=== PATIENT | male | born 1985 | race Caucasian/White ===

== ENCOUNTER 2017-02-28 02:37 | Inpatient (IN) | payer MEDICARE, MEDICAID ==
[~2017-02-28] VITALS: Ht 188 cm; Wt 81.8 kg
[~2017-02-28 02:37] MED LIST: DIVA500T35 PO; RISP2 PO
[2017-02-28 03:01] LABS: BASOPHILS % (AUTO) 0.4 % (0.0-2.0); EOSINOPHILS % (AUTO) 2.7 % (1.0-6.0); HEMATOCRIT 46.1 % (41-53); HEMOGLOBIN 15.8 g/dL (13.5-17.5); LYMPHOCYTES # (AUTO) 2.5 K/uL (1.0-4.8); MEAN CORPUSCULAR HEMOGLOBIN 31.9 pg (26.0-34.0); MEAN CORPUSCULAR HGB CONC 34.3 G/dL (31.0-37.0); MEAN CORPUSCULAR VOLUME 93 fL (80-100); MONOCYTES # (AUTO) 0.6 K/uL (0.1-1.0); MONOCYTES % (AUTO) 5.1 % (2.0-9.0); NEUTROPHILS # (AUTO) 7.9 K/uL (1.8-7.7); NEUTROPHILS % (AUTO) 69.8 % (40.0-70.0); PLATELET COUNT (AUTO) 226 K/uL (150-450); RED BLOOD CELL COUNT(AUTO) 4.96 MIL/uL (4.50-5.90); RED CELL DISTRIBUTION WIDTH 13.3 % (11.5-14.5)
[2017-02-28 03:05] LABS: ANION GAP 9 mmol/L (8-16); CALCIUM, TOTAL 8.9 mg/dL (8.8-10.5); CARBON DIOXIDE 27 mmol/L (22-29); CHLORIDE 103 mmol/L (98-107); CREATININE 1.04 mg/dL (0.60-1.30); GLOMERULAR FILTR. RATE CALC > 60 mL/min (>60); GLUCOSE,RANDOM 133 mg/dL (70-110); POTASSIUM 3.7 mmol/L (3.5-5.1); SODIUM SERUM 139 mmol/L (136-145); UREA NITROGEN, BLOOD 15 mg/dL (7-18)
[2017-02-28 03:14] LABS: ALANINE AMINOTRANSFERASE 32 U/L (12-78); ALBUMIN 4.1 g/dL (3.4-5.0); ALKALINE PHOSPHATASE 63 U/L (46-116); ASPARTATE AMINOTRANSFERASE 28 U/L (15-37); BILIRUBIN,TOTAL 1.7 mg/dL (0.1-1.0); TOTAL PROTEIN, SERUM 7.1 g/dL (6.4-8.2)
[2017-02-28 03:15] LABS: AMPHET/METH SCREEN,URINE NEGATIVE (NEGATIVE); BARBITURATE SCREEN, URINE NEGATIVE (NEGATIVE); BENZODIAZEPINES SCREEN,URINE NEGATIVE (NEGATIVE); CANNABINOID SCREEN,URINE POSITIVE (NEGATIVE); COCAINE SCREEN,URINE NEGATIVE (NEGATIVE); METHADONE SCREEN, URINE NEGATIVE (NEGATIVE); OPIATE SCREEN,URINE NEGATIVE (NEGATIVE)
[2017-02-28 03:16] LABS: PHENCYCLIDINE SCREEN,URINE NEGATIVE (NEGATIVE)
[2017-02-28 03:16] LABS: VALPROIC ACID < 3 mcg/mL (50-100)
[2017-02-28] MEDS ORDERED: DiphenhydrAMINE HCL 50 MG/ML VIAL IM ONE (03:30)
[2017-02-28] MEDS ORDERED: HALOPERIDOL 5 MG TABLET PO PRN (03:30)
[2017-02-28] MEDS ORDERED: LORazepam 2 MG TABLET PO PRN (03:30)
[2017-02-28] MEDS ORDERED: ZOLPIDEM TARTRATE 10 MG TABLET PO PRN (03:30)
[2017-02-28] MEDS ORDERED: HALOPERIDOL LACTATE 5 MG/ML VIAL IM ONE (03:30)
[2017-02-28] MEDS ORDERED: LORazepam 2 MG/ML VIAL IM ONE (03:30)
[2017-02-28 09:54] VITALS: BP 123/64
[2017-02-28 21:50] VITALS: BP 117/66
[2017-03-01] MEDS ORDERED: INFLUENZA VIRUS VACCINE QVS 2017-18 (3YR+)/PF 60 MCG/0.5 ML SYRINGE IM ONE (02:00)
[2017-03-01 08:00] VITALS: BP 118/66
[2017-03-01] MEDS: DIVALPROEX SODIUM 500 MG ER TABLET PO SCH ×2 (08:42→16:28)
[2017-03-01] MEDS: RisperiDONE 2 MG TABLET PO SCH ×2 (08:42→16:27)
[2017-03-01 16:53] VITALS: BP 116/58
[2017-03-02 04:36] VITALS: BP 121/68
[2017-03-02 08:00] VITALS: BP 155/81
[2017-03-02] MEDS: RisperiDONE 2 MG TABLET PO SCH ×2 (09:38→17:42)
[2017-03-02] MEDS: DIVALPROEX SODIUM 500 MG ER TABLET PO SCH ×2 (09:38→17:42)
[2017-03-03 06:10] LABS: BASOPHILS % (AUTO) 0.5 % (0.0-2.0); EOSINOPHILS % (AUTO) 3.4 % (1.0-6.0); HEMATOCRIT 45.6 % (41-53); HEMOGLOBIN 15.7 g/dL (13.5-17.5); LYMPHOCYTES % (AUTO) 27.1 % (22.0-44.0); MEAN CORPUSCULAR HEMOGLOBIN 32.3 pg (26.0-34.0); MEAN CORPUSCULAR HGB CONC 34.4 G/dL (31.0-37.0); MEAN CORPUSCULAR VOLUME 94 fL (80-100); MONOCYTES # (AUTO) 0.6 K/uL (0.1-1.0); MONOCYTES % (AUTO) 8.3 % (2.0-9.0); NEUTROPHILS # (AUTO) 4.4 K/uL (1.8-7.7); NEUTROPHILS % (AUTO) 60.7 % (40.0-70.0); PLATELET COUNT (AUTO) 195 K/uL (150-450); RED BLOOD CELL COUNT(AUTO) 4.85 MIL/uL (4.50-5.90); RED CELL DISTRIBUTION WIDTH 13.1 % (11.5-14.5)
[2017-03-03 06:29] LABS: ALANINE AMINOTRANSFERASE 32 U/L (12-78); ALBUMIN 3.9 g/dL (3.4-5.0); ALKALINE PHOSPHATASE 77 U/L (46-116); ANION GAP 6 mmol/L (8-16); ASPARTATE AMINOTRANSFERASE 21 U/L (15-37); BILIRUBIN,TOTAL 0.8 mg/dL (0.1-1.0); CALCIUM, TOTAL 8.8 mg/dL (8.8-10.5); CARBON DIOXIDE 32 mmol/L (22-29); CHLORIDE 103 mmol/L (98-107); CREATININE 0.88 mg/dL (0.60-1.30); GLOMERULAR FILTR. RATE CALC > 60 mL/min (>60); GLUCOSE,RANDOM 89 mg/dL (70-110); POTASSIUM 3.7 mmol/L (3.5-5.1); SODIUM SERUM 141 mmol/L (136-145); UREA NITROGEN, BLOOD 14 mg/dL (7-18); VALPROIC ACID 64 mcg/mL (50-100)
[2017-03-03 08:46] VITALS: BP 137/71
[2017-03-03] MEDS: RisperiDONE 2 MG TABLET PO SCH (10:31)
[2017-03-03] MEDS: DIVALPROEX SODIUM 500 MG ER TABLET PO SCH (10:32)
== END 2017-03-03 13:20 | disposition home or self-care (01) | DRG 885 ==
LOC: EMS 02:39 → EEVIPCON 02:39 → 3EC 09:18
PROVIDERS: ADMIT Psychiatry & Neurology Psychiatry; ATTEND Psychiatry & Neurology Psychiatry
DX: F25.0 Schizoaffective disorder, bipolar type (principal); R45.850 Homicidal ideations; F17.210 Nicotine dependence, cigarettes, uncomplicated; F41.9 Anxiety disorder, unspecified; F12.90 Cannabis use, unspecified, uncomplicated; D72.829 Elevated white blood cell count, unspecified; K59.00 Constipation, unspecified; G47.00 Insomnia, unspecified; Z28.21 Immunization not carried out because of patient refusal; Z59.0 Homelessness; Z71.51 Drug abuse counseling and surveillance of drug abuser
CPT/HCPCS: 96372; 99285; G0480; J1200; J1630; J2060

== ENCOUNTER 2017-03-06 23:00 | Inpatient (IN) | payer MEDICARE, MEDICAID ==
[~2017-03-06] VITALS: Ht 188 cm; Wt 74.4 kg
[2017-03-06 23:35] LABS: BASOPHILS % (AUTO) 1.2 % (0.0-2.0); EOSINOPHILS % (AUTO) 3.41 % (1.0-6.0); HEMATOCRIT 46.4 % (41-53); HEMOGLOBIN 15.6 g/dL (13.5-17.5); LYMPHOCYTES # (AUTO) 2.4 K/uL (1.0-4.8); LYMPHOCYTES % (AUTO) 27.5 % (22.0-44.0); MEAN CORPUSCULAR HEMOGLOBIN 31.6 pg (26.0-34.0); MEAN CORPUSCULAR HGB CONC 33.7 G/dL (31.0-37.0); MEAN CORPUSCULAR VOLUME 94 fL (80-100); MONOCYTES # (AUTO) 0.8 K/uL (0.1-1.0); MONOCYTES % (AUTO) 9.6 % (2.0-9.0); NEUTROPHILS # (AUTO) 5.1 K/uL (1.8-7.7); NEUTROPHILS % (AUTO) 58.4 % (40.0-70.0); PLATELET COUNT (AUTO) 245 K/uL (150-450); RED BLOOD CELL COUNT(AUTO) 4.95 MIL/uL (4.50-5.90); RED CELL DISTRIBUTION WIDTH 13.4 % (11.5-14.5); WHITE BLOOD COUNT (AUTO) 8.8 K/uL (4.5-11.0)
[2017-03-06 23:44] LABS: ANION GAP 6 mmol/L (8-16); CALCIUM, TOTAL 9.1 mg/dL (8.8-10.5); CARBON DIOXIDE 29 mmol/L (22-29); CHLORIDE 103 mmol/L (98-107); CREATININE 1.05 mg/dL (0.60-1.30); GLOMERULAR FILTR. RATE CALC > 60 mL/min (>60); POTASSIUM 3.7 mmol/L (3.5-5.1); SODIUM SERUM 138 mmol/L (136-145); UREA NITROGEN, BLOOD 18 mg/dL (7-18)
[2017-03-06 23:50] LABS: ALANINE AMINOTRANSFERASE 34 U/L (12-78); ALBUMIN 4.1 g/dL (3.4-5.0); ASPARTATE AMINOTRANSFERASE 24 U/L (15-37); BILIRUBIN,TOTAL 1.2 mg/dL (0.1-1.0); TOTAL PROTEIN, SERUM 7.3 g/dL (6.4-8.2)
[2017-03-06 23:54] LABS: VALPROIC ACID < 3 mcg/mL (50-100)
[2017-03-07] MEDS ORDERED: ZOLPIDEM TARTRATE 10 MG TABLET PO PRN (01:45)
[2017-03-07] MEDS ORDERED: HALOPERIDOL 5 MG TABLET PO PRN (01:45)
[2017-03-07] MEDS ORDERED: INFLUENZA VIRUS VACCINE QVS 2017-18 (3YR+)/PF 60 MCG/0.5 ML SYRINGE IM ONE (05:15)
[2017-03-07 05:25] VITALS: BP 117/77
[2017-03-07 08:15] VITALS: BP 124/86
[2017-03-07] MEDS: NICOTINE 21 MG/24 HOUR PATCH TD SCH (10:48)
[2017-03-07 16:30] VITALS: BP 133/81
[2017-03-07] MEDS ORDERED: DiphenhydrAMINE HCL 50 MG/ML VIAL IM ONE (16:30)
[2017-03-07] MEDS ORDERED: LORazepam 2 MG/ML VIAL IM ONE (16:30)
[2017-03-07] MEDS ORDERED: HALOPERIDOL LACTATE 5 MG/ML VIAL IM ONE (16:30)
[2017-03-07] MEDS: DIVALPROEX SODIUM 500 MG ER TABLET PO SCH (16:40)
[2017-03-07] MEDS: RisperiDONE 2 MG TABLET PO SCH (16:40)
[2017-03-07 17:32] VITALS: BP 117/71
[2017-03-07] MEDS ORDERED: DOCUSATE SODIUM 100 MG CAPSULE PO PRN (20:30)
[2017-03-07] MEDS ORDERED: ACETAMINOPHEN 325 MG TABLET PO PRN (20:30)
[2017-03-07] MEDS ORDERED: IBUPROFEN 400 MG TABLET PO PRN (20:30)
[2017-03-08 07:31] VITALS: BP 111/79
[2017-03-08 08:26] VITALS: BP 115/64
[2017-03-08] MEDS: NICOTINE 21 MG/24 HOUR PATCH TD SCH (08:44)
[2017-03-08] MEDS: DIVALPROEX SODIUM 500 MG ER TABLET PO SCH ×2 (08:45→16:55)
[2017-03-08] MEDS: LORazepam 2 MG TABLET PO PRN ×2 (08:45→16:55)
[2017-03-08] MEDS: RisperiDONE 2 MG TABLET PO SCH ×2 (08:45→16:55)
[2017-03-08] MEDS: SERTRALINE HCL 50 MG TABLET PO SCH (08:46)
[2017-03-08 16:00] VITALS: BP 114/67
[2017-03-09 05:01] VITALS: BP 110/72
[2017-03-09 08:36] VITALS: BP 122/62
[2017-03-09] MEDS: RisperiDONE 2 MG TABLET PO SCH ×2 (08:47→16:18)
[2017-03-09] MEDS: DIVALPROEX SODIUM 500 MG ER TABLET PO SCH ×2 (08:48→16:18)
[2017-03-09] MEDS: NICOTINE 21 MG/24 HOUR PATCH TD SCH (08:48)
[2017-03-09] MEDS: SERTRALINE HCL 50 MG TABLET PO SCH (08:51)
[2017-03-09 09:09] LABS: CHOL/HDL RATIO 3.1 (4.2-7.3)
[2017-03-09 16:00] VITALS: BP 124/69
[2017-03-10 05:59] VITALS: BP 120/63
[2017-03-10 08:04] VITALS: BP 113/64
[2017-03-10] MEDS: NICOTINE 21 MG/24 HOUR PATCH TD SCH (08:09)
[2017-03-10] MEDS: SERTRALINE HCL 50 MG TABLET PO SCH (08:09)
[2017-03-10] MEDS: DIVALPROEX SODIUM 500 MG ER TABLET PO SCH ×2 (08:09→16:05)
[2017-03-10] MEDS: RisperiDONE 2 MG TABLET PO SCH ×2 (08:09→16:05)
[2017-03-10 16:11] VITALS: BP 129/78
[2017-03-11] MEDS ORDERED: GuaiFENesin [SUGAR-FREE] 200 MG/10 ML SOLUTION UDCUP PO PRN (02:00)
[2017-03-11 06:53] VITALS: BP 134/76
[2017-03-11 08:34] VITALS: BP 114/76
[2017-03-11] MEDS: NICOTINE 21 MG/24 HOUR PATCH TD SCH (08:39)
[2017-03-11] MEDS: RisperiDONE 2 MG TABLET PO SCH ×2 (08:39→16:36)
[2017-03-11] MEDS: DIVALPROEX SODIUM 500 MG ER TABLET PO SCH ×2 (08:39→16:36)
[2017-03-11] MEDS: SERTRALINE HCL 50 MG TABLET PO SCH (08:39)
[2017-03-11] MEDS: BENZOCAINE/MENTHOL LOZENGE PO PRN ×2 (12:42→19:20)
[2017-03-11 16:00] VITALS: BP 121/74
[2017-03-12 00:59] VITALS: BP 130/70
[2017-03-12] MEDS: BENZOCAINE/MENTHOL LOZENGE PO PRN ×2 (04:05→10:40)
[2017-03-12 07:48] LABS: BASOPHILS % (AUTO) 0.3 % (0.0-2.0); EOSINOPHILS % (AUTO) 3.5 % (1.0-6.0); HEMATOCRIT 44.3 % (41-53); HEMOGLOBIN 15.2 g/dL (13.5-17.5); LYMPHOCYTES # (AUTO) 1.8 K/uL (1.0-4.8); LYMPHOCYTES % (AUTO) 14.8 % (22.0-44.0); MEAN CORPUSCULAR HEMOGLOBIN 32.1 pg (26.0-34.0); MEAN CORPUSCULAR HGB CONC 34.4 G/dL (31.0-37.0); MEAN CORPUSCULAR VOLUME 93 fL (80-100); MONOCYTES # (AUTO) 0.9 K/uL (0.1-1.0); MONOCYTES % (AUTO) 7.2 % (2.0-9.0); NEUTROPHILS # (AUTO) 8.9 K/uL (1.8-7.7); NEUTROPHILS % (AUTO) 74.2 % (40.0-70.0); PLATELET COUNT (AUTO) 199 K/uL (150-450); RED BLOOD CELL COUNT(AUTO) 4.74 MIL/uL (4.50-5.90); RED CELL DISTRIBUTION WIDTH 13.3 % (11.5-14.5)
[2017-03-12 08:29] VITALS: BP 139/70
[2017-03-12] MEDS: SERTRALINE HCL 50 MG TABLET PO SCH (09:01)
[2017-03-12] MEDS: DIVALPROEX SODIUM 500 MG ER TABLET PO SCH ×2 (09:01→17:09)
[2017-03-12] MEDS: RisperiDONE 2 MG TABLET PO SCH ×2 (09:01→17:09)
[2017-03-12] MEDS: NICOTINE 21 MG/24 HOUR PATCH TD SCH (09:01)
[2017-03-12 16:00] VITALS: BP 118/74
[2017-03-13 01:39] VITALS: BP 125/75
[2017-03-13] MEDS ORDERED: DIVA500T52 PO (04:13)
[2017-03-13] MEDS ORDERED: RISP2TAB76 PO (04:13)
[2017-03-13] MEDS ORDERED: SERT25TA PO (04:13)
== END 2017-03-13 07:15 | disposition home or self-care (01) | DRG 885 ==
LOC: EMS 23:02 → B2X 03-07 01:32 → B3A 03-07 06:33
PROVIDERS: ATTEND Psychiatry & Neurology Psychiatry
DX: F25.0 Schizoaffective disorder, bipolar type (principal); R17 Unspecified jaundice; R45.851 Suicidal ideations; F41.9 Anxiety disorder, unspecified; G47.00 Insomnia, unspecified; K59.00 Constipation, unspecified; R45.850 Homicidal ideations; J02.9 Acute pharyngitis, unspecified; F19.10 Other psychoactive substance abuse, uncomplicated; Z59.0 Homelessness; Z79.899 Other long term (current) drug therapy
CPT/HCPCS: 87081; 99285; G0480; J1200; J1630; J2060